=== PATIENT | female | born 1960 | race Two or more races ===

== ENCOUNTER 2020-12-15 10:17 | Day surgery (SDC) | payer OTHER, SELFPAY ==
[~2020-12-15] VITALS: Ht 152.4 cm; Wt 67.6 kg
[2020-12-15] MEDS ORDERED: BUPIVACAINE-MPF/EPI 0.25% 30 ML VIAL INJ ONE (13:24)
[2020-12-15] MEDS ORDERED: LIDOCAINE 1% 500 MG/50 ML VIAL ONE (13:24)
[2020-12-15] MEDS ORDERED: fentaNYL citrate 0.05 MG/ML VIAL ONE (13:36)
[2020-12-15] MEDS ORDERED: SEVOFLURANE 250 ML BTL INH ONE (13:41)
[2020-12-15] MEDS ORDERED: MEPERIDINE 25 MG/ML SYR ONE (13:55)
[2020-12-15] MEDS ORDERED: LIDOCAINE MPF 2% 100 MG/5 ML VIAL INJ ONE (14:01)
[2020-12-15] MEDS ORDERED: PROPOFOL 200 MG/20 ML VIAL IV ONE (14:01)
[2020-12-15] MEDS ORDERED: METOCLOPRAMIDE 10 MG/2 ML INJ VIAL ONE (14:01)
[2020-12-15] MEDS ORDERED: ROCURONIUM 50 MG/5 ML VIAL IV ONE (14:01)
[2020-12-15] MEDS ORDERED: SUCCINYLCHOLINE CHLORIDE 200 MG/10 ML VIAL IVP ONE (14:01)
[2020-12-15] MEDS ORDERED: KETOROLAC 30 MG/ML VIAL ONE (14:02)
[2020-12-15] MEDS ORDERED: DEXAMETHASONE 4 MG/ML VIAL ONE (14:02)
[2020-12-15] MEDS ORDERED: NEOSTIGMINE 1:1000 10 MG/10 ML VIAL ONE (14:02)
[2020-12-15] MEDS ORDERED: ONDANSETRON 4 MG/2 ML VIAL ONE (14:02)
[2020-12-15] MEDS ORDERED: GLYCOPYRROLATE 0.2 MG/ML VIAL ONE (14:02)
[2020-12-15] MEDS ORDERED: MEPERIDINE 25 MG/ML SYR IVP PRN (14:05)
[2020-12-15] MEDS ORDERED: LACTATED RINGERS 1,000 ML IV SCH (14:05)
[2020-12-15] MEDS ORDERED: oxyCODONE/APAP 5/325 MG 1 TAB TAB PO PRN (14:05)
[2020-12-15] MEDS ORDERED: fentaNYL citrate 0.05 MG/ML VIAL IVP PRN (14:05)
[2020-12-15] MEDS ORDERED: ONDANSETRON 4 MG/2 ML VIAL IVP PRN (14:05)
[2020-12-15] MEDS ORDERED: diphenhydrAMINE 50 MG/ML VIAL IVP PRN (14:05)
[2020-12-15] MEDS ORDERED: MORPHINE SULFATE 4 MG/ML SYR IV PRN (14:50)
[2020-12-15] MEDS ORDERED: MORPHINE SULFATE 2 MG/ML SYR IVP PRN (14:50)
[2020-12-15] MEDS ORDERED: ONDANSETRON 4 MG/2 ML VIAL IV PRN (14:50)
[2020-12-15] MEDS ORDERED: HYDROcodone/APAP 5/325 MG 1 TAB TAB PO PRN (14:50)
[2020-12-15] MEDS ORDERED: HYDROmorphone 1 MG/ML AMP IVP PRN (14:50)
[2020-12-15] MEDS ORDERED: ePHEDrine 50 MG/ML VIAL ONE (14:53)
[2020-12-15] MEDS ORDERED: HYDROmorphone PFS 2 MG/ML SYR ONE (15:21)
[2020-12-15] MEDS: HYDROmorphone 1 MG/ML AMP IVP PRN ×2 (15:25→15:35)
== END 2020-12-15 19:00 | disposition home or self-care (01) ==
LOC: MDS 10:17 → MMU 10:28 → MDS 19:00
PROVIDERS: ATTEND Surgery
DX: K82.8 Other specified diseases of gallbladder (principal); K82.4 Cholesterolosis of gallbladder; K21.9 Gastro-esophageal reflux disease without esophagitis; Z79.899 Other long term (current) drug therapy; Z20.822 Contact with and (suspected) exposure to COVID-19
CPT/HCPCS: 36415; 47562; 71045; 82374; 86886; 86900; 86901; J0330; J0690; J1100; J1170; J2001; J2175; J2405; J2704; J2710; J2765; J3010; J3490; J7030; J7060; J7120; U0003; J1885